=== PATIENT | male | born 2005 | race Two or more races ===

== ENCOUNTER → 2023-08-08 | Emergency (ER) | payer SELFPAY ==
[~2023-08-08] VITALS: Ht 180.3 cm; Wt 85.0 kg
[2023-08-08 16:07] VITALS: O2SAT 99
[2023-08-08 17:13] VITALS: BP 127/64; PULSE 69; RESP 16; TEMP 98.1
== END | disposition home or self-care (01) ==
LOC: ER 15:48
DX: S01.81XA Laceration without foreign body of other part of head, initial encounter (principal); W22.8XXA Striking against or struck by other objects, initial encounter; Y93.89 Activity, other specified; Y92.89 Other specified places as the place of occurrence of the external cause; Y99.8 Other external cause status
CPT/HCPCS: 12011; 99283